=== PATIENT | female | born 1985 | race Caucasian/White ===

== ENCOUNTER 2020-06-28 06:04 | Day surgery (SDC) | payer BC, SELFPAY ==
[~2020-06-28] VITALS: Ht 154.9 cm; Wt 65.3 kg
[2020-06-28] MEDS ORDERED: OXYCODONE/ACETAMINOPHEN 5-325 TABLET PO PRN ×2 (08:15)
[2020-06-28] MEDS ORDERED: HYDROcodone/ACETAMIN 5-325 MG TAB (NORCO/ VICODIN) PO PRN (08:15)
[2020-06-28] MEDS ORDERED: ONDANSETRON HCL 4 MG/2 ML VIAL IVP PRN ×2 (08:15→08:30)
[2020-06-28] MEDS ORDERED: LR 1,000 ML IV SCH (08:30)
[2020-06-28] MEDS ORDERED: KETOROLAC TROMETHAMINE 30 MG VIAL IVP PRN ×3 (08:30)
[2020-06-28] MEDS ORDERED: MORPHINE 4 MG/ML INJ. SYRINGE IVP PRN ×3 (08:30)
[2020-06-28 09:35] VITALS: BP_SYST 122
== END 2020-06-28 10:20 | disposition home or self-care (01) ==
LOC: SDS 06:04 → SMU 06:04 → SDS 10:20
PROVIDERS: ATTEND Specialist
DX: O03.4 Incomplete spontaneous abortion without complication (principal); Z20.828 Contact with and (suspected) exposure to other viral communicable diseases
CPT/HCPCS: 59812; 88305; U0003